=== PATIENT | male | born 1985 | race Caucasian/White ===

== ENCOUNTER 2017-07-15 10:12 | Emergency (ER) | END 2017-07-15 11:47 | disposition home or self-care (01) ==

== ENCOUNTER 2018-11-09 09:23 | Emergency (ER) | payer OTHER ==
[~2018-11-09] VITALS: Ht 193 cm; Wt 74.8 kg
[~2018-11-09 09:23] MED LIST: Cyclobenzaprine5 MG PO; METPRE4DP PO; Mobic15 MG PO; Mobic7.5 MG PO; NAPR500ERA PO; Naprosyn500 MG PO; Norco 5-325 Ta1 EACH PO
[2018-11-09] MEDS ORDERED: Norco 10-325 T1 EACH PO (13:36)
[2018-11-09] MEDS ORDERED: Zofran4 MG PO (13:36)
[2018-11-09] MEDS ORDERED: IBUP600 PO (13:36)
== END 2018-11-09 14:52 | disposition home or self-care (01) ==
LOC: ER 09:23
DX: S16.1XXA Strain of muscle, fascia and tendon at neck level, initial encounter (principal); S83.91XA Sprain of unspecified site of right knee, initial encounter; R07.89 Other chest pain; F17.200 Nicotine dependence, unspecified, uncomplicated; Z88.0 Allergy status to penicillin; Z79.899 Other long term (current) drug therapy; W14.XXXA Fall from tree, initial encounter
CPT/HCPCS: 70450; 71111; 72125; 73562-RT; 99284-25; L0160

== ENCOUNTER 2018-11-16 15:28 | Emergency (ER) | payer OTHER ==
[~2018-11-16 15:28] MED LIST changes: +IBUP600 PO; +Norco 10-325 T1 EACH PO; +Zofran4 MG PO
== END 2018-11-16 16:15 | disposition left against medical advice (07) ==
LOC: ER 15:28
DX: Z53.21 Procedure and treatment not carried out due to patient leaving prior to being seen by health care provider (principal)

== ENCOUNTER 2019-01-29 07:21 | Emergency (ER) | payer OTHER ==
[~2019-01-29] VITALS: Ht 182.9 cm; Wt 90.7 kg
[2019-01-29 08:30] LABS: Calcium, Ionized (POC) 1.22 mmol/L (1.10-1.46); Chloride (POC) 102 mmol/L (98-108); Glucose (ISTAT POC) 100 mg/dL (70-99); Hemoglobin (POC) 14.6 g/dL (13.5-17.5); Potassium (POC) 3.8 mmol/L (3.5-5.5); Sodium (POC) 140 mmol/L (135-148); Total CO2 (POC) 28 mmol/L (21-32)
== END 2019-01-29 09:00 | disposition home or self-care (01) ==
LOC: ER 07:21
PROVIDERS: Emergency Medicine
DX: R13.10 Dysphagia, unspecified (principal); F17.210 Nicotine dependence, cigarettes, uncomplicated; Z88.0 Allergy status to penicillin
CPT/HCPCS: 36415; 70360; 80047; 85014; 99284-25

== ENCOUNTER 2019-12-22 18:05 | Emergency (ER) | payer OTHER ==
[~2019-12-22] VITALS: Ht 193 cm; Wt 77.1 kg
[2019-12-22] MEDS ORDERED: KETO10 PO (20:22)
== END 2019-12-22 20:32 | disposition home or self-care (01) ==
LOC: ER 18:05
DX: S20.212A Contusion of left front wall of thorax, initial encounter (principal); F17.200 Nicotine dependence, unspecified, uncomplicated; Z88.0 Allergy status to penicillin
CPT/HCPCS: 71046; 99283-25

== ENCOUNTER 2021-11-26 14:55 | Emergency (ER) | payer OTHER ==
[~2021-11-26] VITALS: Ht 193 cm; Wt 131.5 kg
[~2021-11-26 14:55] MED LIST changes: +KETO10 PO
== END 2021-11-26 16:25 | disposition home or self-care (01) ==
LOC: ER 14:55
DX: M25.512 Pain in left shoulder (principal); F17.200 Nicotine dependence, unspecified, uncomplicated
CPT/HCPCS: 73030; 96372; 99283-25; J1885

== ENCOUNTER 2023-10-14 13:03 | Emergency (ER) | payer OTHER ==
[~2023-10-14] VITALS: Ht 193 cm; Wt 108.9 kg
[2023-10-14] MEDS ORDERED: Glucagon 1 MG/KIT VIAL IV ONE (14:05)
[2023-10-14 15:30] VITALS: BP 125/66
== END 2023-10-14 15:44 | disposition short-term general hospital (02) ==
LOC: ER 13:03
DX: T18.128A Food in esophagus causing other injury, initial encounter (principal); F17.200 Nicotine dependence, unspecified, uncomplicated; Z88.0 Allergy status to penicillin
CPT/HCPCS: 71046; 96374; 99284-25; J1610

== ENCOUNTER 2024-10-31 09:40 | Emergency (ER) | payer OTHER ==
[~2024-10-31] VITALS: Ht 193 cm; Wt 108.9 kg
[2024-10-31 11:06] LABS: BASOPHILS ABSOLUTE AUTO 0.04 K/mm3 (0.00-0.23); BASOPHILS PERCENT AUTO 0 % (0-2); EOSINOPHILS ABSOLUTE AUTO 0.68 K/mm3 (0.00-0.68); EOSINOPHILS PERCENT AUTO 4 % (0-6); Hematocrit 40.8 % (37.0-53.0); Hemoglobin 13.2 g/dL (13.5-17.5); IMMATURE GRAN ABSOLUTE AUTO 0.06 K/mm3 (0.00-0.10); IMMATURE GRAN PERCENT AUTO 0 % (0-1); LYMPHOCYTES ABSOLUTE AUTO 2.13 K/mm3 (0.84-5.20); LYMPHOCYTES PERCENT AUTO 14 % (21-46); MONOCYTES ABSOLUTE AUTO 1.02 K/mm3 (0.16-1.47); MONOCYTES PERCENT AUTO 7 % (4-13); Mean Corpuscular HGB Conc 32.4 g/dL (31.5-36.5); Mean Corpuscular Volume 90 fL (80-100); NEUTROPHILS ABSOLUTE AUTO 11.53 K/mm3 (1.96-9.15); NEUTROPHILS PERCENT AUTO 75 % (41-73); NRBC ABSOLUTE 0.00 K/mm3 (0.00-0.02); NRBC Auto 0.0 /100 WBC (0.0-0.2); Platelet Count 253 K/mm3 (150-400); RDW Coefficient Variation 13.4 % (11.7-14.2); RDW Standard Deviation 44.0 fL (35.1-46.3)
[2024-10-31 11:38] LABS: Alanine Aminotransfer (ALT/SGP 26.0 U/L (12-78); Albumin, Blood 3.3 g/dL (3.4-5.0); Albumin/Globulin Ratio 0.8 (0.8-1.8); Anion Gap 5.0 mmol/L (3-11); Aspartate Aminotrans (AST/SGOT 15.0 U/L (12-37); Bilirubin, Total 0.3 mg/dL (0.1-1.0); Blood Urea Nitrogen 17.0 mg/dL (8-24); CO2, Blood 25.0 mmol/L (21-32); Calcium, Blood 8.9 mg/dL (8.5-10.1); Chloride, Blood 114.0 mmol/L (98-108); Creatinine, Blood 0.85 mg/dL (0.60-1.20); Globulin, Blood 4.1 g/dL (2.2-4.0); Glucose, Blood 131.0 mg/dL (70-99); Potassium, Blood 4.3 mmol/L (3.5-5.5); Sodium, Blood 140.0 mmol/L (136-145); Total Protein, Blood 7.4 g/dL (6.4-8.2)
[2024-10-31] MEDS ORDERED: CeFAZolin Sodium 2,000 MG in NS 100 ML IV ONE (14:45)
[2024-10-31] MEDS ORDERED: Trimethoprim/Sulfamethoxazole DS Tab PO ONE (14:45)
[2024-10-31] MEDS ORDERED: CEPH500 PO (16:09)
[2024-10-31] MEDS ORDERED: VALACYCLOVIR1000 MG PO (16:09)
[2024-10-31] MEDS ORDERED: Bactrim Ds Tab1 EACH PO (16:09)
[2024-10-31] MEDS ORDERED: Ketorolac Tromethamine 15mg Vial IV ONE (16:30)
[2024-10-31 16:51] VITALS: BP 153/88
[2024-11-02 14:44] LABS: HEPATITIS B SURFACE ANTIBODY <3.10 IU/L
[2024-11-02 15:17] LABS: HBV CORE ANTIBODIES,TOTAL Negative (Negative)
[2024-11-03 07:11] LABS: APTIMA MEDIA TYPE Urine; C. TRACHOMATIS BY TMA Negative (Negative); N. GONORRHOEAE BY TMA Negative (Negative)
[2024-11-03 11:53] LABS: HIV 1,2 COMBO ANTIGEN/ANTIBODY Negative (Negative)
[2024-11-04 21:29] LABS: HCV QNT BY NAAT (IU/ML) Not Detected; HCV QNT BY NAAT (LOG IU/ML) Not Detected; HCV QNT BY NAAT INTERP Not Detected (Not Detected)
[2024-11-05] MEDS ORDERED: DOXY100 PO (00:33)
== END 2024-10-31 16:54 | disposition home or self-care (01) ==
LOC: ER 09:40
PROVIDERS: Emergency Medicine
DX: L02.511 Cutaneous abscess of right hand (principal); A60.00 Herpesviral infection of urogenital system, unspecified; Z88.0 Allergy status to penicillin; F17.200 Nicotine dependence, unspecified, uncomplicated
CPT/HCPCS: 10060; 36415; 73130; 80053; 83605; 85025; 86592; 86704; 87040; 87340; 87389; 87491; 87522; 87591; 90471; 90715; 96365-59; 96375-59; 99283-25; A9270; J0690; J1885